=== PATIENT | female | born 1955 | race Caucasian/White ===

== ENCOUNTER → 2023-09-20 09:22 | Outpatient (BNVA) | payer MEDICARE, OTHER, SELFPAY | PROVIDERS: Visit Provider Nurse Practitioner Family | DX: L57.0 Actinic keratosis (principal); L72.0 Epidermal cyst; L82.1 Other seborrheic keratosis; D23.72 Other benign neoplasm of skin of left lower limb, including hip; Z80.8 Family history of malignant neoplasm of other organs or systems | CPT/HCPCS: 17000; 99203 ==

== ENCOUNTER → 2023-10-11 08:55 | Outpatient (BNVA) | payer MEDICARE, OTHER, SELFPAY | PROVIDERS: Visit Provider Dermatology | DX: D48.5 Neoplasm of uncertain behavior of skin (principal) | CPT/HCPCS: 11422; 12041 ==